=== PATIENT | female | born 1985 | race Caucasian/White ===

== ENCOUNTER 2022-07-09 09:30 | Emergency (ER) | payer BC, SELFPAY ==
[2022-07-09] VITALS (33 sets, daily range): BP systolic 129–166; BP diastolic 89–116; PULSE 54–79; RESP 16; TEMP 36.3; O2SAT 98–100; BMI 25.8
--- NOTE | 2022-07-09 10:10 | ED.GENADULT ---
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 Patient reports she has had 2 day history of left-sided pleuritic chest pain. They did get back from a long trip to [place] about a week ago. She has noticed no swelling or edema in her legs. No fevers chills cough. No COVID symptoms. She has generally been quite healthy. Has had a stressful week where she has had to lay off some employees. She takes Celexa and omeprazole she has had longstanding reflux. She reports this is different than her reflux. She can make it more uncomfortable when she takes a deep breath hurts over her left lateral chest wall area. No leg swelling or edema as mention. No bleeding or clotting problems. Her had a vasectomy. Related Data Home Medications Medication Instructions Recorded Confirmed citalopram 20 mg tablet (Celexa) 20 mg PO DAILY 07/09/22 07/09/22 omeprazole 20 mg-sodium 1 cap PO DAILY 07/09/22 07/09/22 bicarbonate 1.1 gram capsule (Zegerid) Allergies Allergy/AdvReac Type Severity Reaction Status Date / Time Sulfa (Sulfonamide Allergy Severe Verified 07/09/22 12:00 Antibiotics) Review of Systems Status of ROS: Reports: 6 or more systems reviewed and unremarkable except as noted in History and below PFSH PFSH Social History Smoking Status: Never smoker Do you use any of these nicotine containing products: None Second hand tobacco smoke exposure: No How often do you have a drink containing alcohol: 2-3 times a week How many standard drinks containing alcohol do you have on a typical day: 3 or 4 AUDIT-C Alcohol total score: 4 Non-prescribed substance use: denies use service: No Exam Narrative: Exam Narrative: Objective: Vital signs are slightly elevated blood pressure, the patient usually does not have elevated blood pressure. She has had elevated blood pressure in ERs in the past HEENT is unremarkable Neck is supple Chest is clear no rales or wheezing Heart rhythm without murmur Patient can recreate the discomfort by taking a deep breath her left mid axillary line below her left breast. No skin rashes reported Abdomen benign soft Extremities are no edema neurologic nonfocal good peripheral perfusion noted Const: Vital Signs, click to edit/add: Vital Signs - 24 hr 07/09/22 09:37 07/09/22 11:06 07/09/22 09:42 Temperature 97.4 F L Pulse Rate 70 Pulse Rate [Pulse Oximeter] 79 Respiratory Rate 16 Blood Pressure Blood Pressure [Ri ght Upper Arm] 159/105 H Pulse Oximetry 100 100 [facility] 07/09/22 09:43 07/09/22 09:45 07/09/22 10:00 Temperature Pulse Rate 66 67 65 Pulse Rate [Pulse Oximeter] Respiratory Rate Blood Pressure 135/110 H Blood Pressure [Ri ght Upper Arm] Pulse Oximetry 100 100 100 [facility] 07/09/22 10:01 07/09/22 10:15 07/09/22 10:21 Temperature Pulse Rate 67 58 L 58 L Pulse Rate [Pulse Oximeter] Respiratory Rate Blood Pressure 159/102 H 132/96 H Blood Pressure [Ri ght Upper Arm] Pulse Oximetry 100 100 100 [facility] 07/09/22 10:30 07/09/22 10:41 07/09/22 10:41 Temperature Pulse Rate 62 59 L 59 L Pulse Rate [Pulse Oximeter] Respiratory Rate Blood Pressure 129/102 H 129/102 H Blood Pressure [Ri ght Upper Arm] Pulse Oximetry 100 100 100 [facility] 07/09/22 10:41 07/09/22 10:41 07/09/22 10:45 Temperature Pulse Rate 59 L 59 L 60 Pulse Rate [Pulse Oximeter] Respiratory Rate Blood Pressure 129/102 H 129/102 H Blood Pressure [Ri ght Upper Arm] Pulse Oximetry 100 100 98 [facility] 07/09/22 11:00 07/09/22 11:01 07/09/22 11:02 Temperature Pulse Rate 57 L 59 L Pulse Rate [Pulse Oximeter] Respiratory Rate Blood Pressure 143/100 H Blood Pressure [Ri ght Upper Arm] Pulse Oximetry 100 100 [facility] 07/09/22 11:15 04/12/23 11:21 07/09/22 11:30 Temperature Pulse Rate 54 L 59 L 59 L Pulse Rate [Pulse Oximeter] Respiratory Rate Blood Pressure 146/105 H Blood Pressure [Ri ght Upper Arm] Pulse Oximetry 100 100 100 Oxygen Delivery Me thod 07/09/22 11:41 07/09/22 12:02 07/09/22 12:03 Temperature Pulse Rate 61 78 78 Pulse Rate [Pulse Oximeter] Respiratory Rate Blood Pressure 143/103 H 165/116 H Blood Pressure [Ri ght Upper Arm] Pulse Oximetry 100 100 100 Oxygen Delivery Me thod 07/09/22 12:15 07/09/22 12:22 07/09/22 12:23 Temperature Pulse Rate 61 63 61 Pulse Rate [Pulse Oximeter] Respiratory Rate Blood Pressure 166/112 H Blood Pressure [Ri ght Upper Arm] Pulse Oximetry 100 100 100 Oxygen Delivery Me thod 07/09/22 12:30 07/09/22 12:42 07/09/22 12:45 Temperature Pulse Rate 55 L 58 L 56 L Pulse Rate [Pulse Oximeter] Respiratory Rate Blood Pressure 165/89 H Blood Pressure [Ri ght Upper Arm] Pulse Oximetry 100 100 100 Oxygen Delivery Me thod 07/09/22 13:00 07/09/22 13:01 07/09/22 13:02 Temperature Pulse Rate 57 L 57 L 54 L Pulse Rate [Pulse Oximeter] Respiratory Rate Blood Pressure 161/115 H Blood Pressure [Ri ght Upper Arm] Pulse Oximetry 99 100 100 Oxygen Delivery Me thod 07/09/22 13:15 07/09/22 13:22 07/09/22 13:30 Temperature Pulse Rate 58 L 62 60 Pulse Rate [Pulse Oximeter] Respiratory Rate Blood Pressure 164/113 H Blood Pressure [Ri ght Upper Arm] Pulse Oximetry 100 100 100 Oxygen Delivery Me thod Course Vital Signs Vital signs: Initial Vital Signs Temperature 97.4 F L 07/09/22 09:37 Temperature Source Temporal Artery Scan 07/09/22 09:37 Pulse Rate 79 07/09/22 09:37 Pulse Rhythm Regular 07/09/22 09:37 Pulse Strength 3+ Normal 07/09/22 09:37 Respiratory Rate 16 07/09/22 09:37 Blood Pressure 159/105 H 07/09/22 09:37 Blood Pressure Mean 123 07/09/22 09:37 Blood Pressure Position Supine 07/09/22 09:37 Pulse Oximetry 100 07/09/22 09:37 Oxygen Delivery Method Room Air 07/09/22 09:37 Vital Signs Temperature 97.4 F L 07/09/22 09:37 Pulse Rate 79 07/09/22 09:37 Respiratory Rate 16 07/09/22 09:37 Blood Pressure 159/105 H 07/09/22 09:37 Pulse Oximetry 100 07/09/22 09:37 Oxygen Delivery Method Room Air 07/09/22 09:37 Temperature 97.4 F L 07/09/22 09:37 Pulse Rate 60 07/09/22 13:30 Respiratory Rate 16 07/09/22 09:37 Blood Pressure 164/113 H 07/09/22 13:22 Pulse Oximetry 100 07/09/22 13:30 Oxygen Delivery Method Room Air 07/09/22 09:37 Medical Decision Making MDM Narrative Medical decision making narrative: [age] year white female with left-sided pleuritic chest pain, a week after a prolonged car ride. Patient does not appear to be hypoxic at this point. His 100% on room air. She has been under lot of stress this week as well. I suspect this is more a musculoskeletal type issue, but certainly cannot exclude PE or other intrapulmonary pathology given her recent travel. I think a chest CT scan would be appropriate as well as laboratory studies, EKG, troponin, D-dimer, aspirin orally. Minor for comfortable plan. Addendum: EKG by my read shows sinus bradycardia no acute ST T wave changes, CT scan of the chest shows no evidence of PE Her D-dimer is slightly elevated, but her CT is negative as mention which is reassuring. Certainly this could be elevated for a number reasons including inflammation. I think she has got an inflammatory chest wall condition. She will take some Advil or Aleve as described. Light activity recommended also of note is her troponin was negative her CRP was negative. She has been comfortable plan return as needed. Also her blood pressure was a little bit elevated she will check this with her home cough over the next few days and follow up with primary care. Lab Data Labs: Lab Results 07/09/22 Range/Units 10:58 WBC 5.73 (4.50-11.00) K/uL RBC 4.61 (4.00-5.20) m/uL Hgb 11.4 L (12.0-16.0) gm/dL Hct 36.2 (33.0-51.0) % MCV 79 L (80-100) fL MCH 25 L (26-34) pg MCHC 32 (32-36) gm/dL RDW Coeff of Kei 15.7 H (11.5-15.5) % Plt Count 352 (140-440) K/uL Neut % (Auto) 56.4 (42.0-72.0) % Lymph % (Auto) 33.0 (20-44) % Gosper % (Auto) 6.8 (0.0-11.0) % Eos % (Auto) 3.3 (0.0-7.0) % Baso % (Auto) 0.3 (0.0-3.0) % Neut # (Auto) 3.23 (1.7-7.0) K/uL Lymph # (Auto) 1.89 (0.90-2.90) K/uL Gosper # (Auto) 0.40 (0.00-0.90) K/UL Eos # (Auto) 0.19 (0.00-0.50) K/uL Baso # (Auto) 0.02 (0.00-0.30) K/uL D-Dimer Quant (PE/DVT) 1.73 H (0.00-0.50) ug/ml Sodium 137 (135-149) mmol/L Potassium 4.2 (3.6-5.1) mmol/L Chloride 107 (96-114) mmol/L Carbon Dioxide 18 L (20-32) mmol/L BUN 9 (5-24) mg/dL Creatinine 0.8 (0.5-1.5) mg/dL Estimated Creat Clear 96.18 Estimated GFR 97 ml/min Glucose 86 (60-115) mg/dL Calcium 9.0 (8.4-10.6) mg/dL Total Bilirubin 1.6 H (0.1-1.5) mg/dL Direct Bilirubin 0.3 (0.0-0.5) mg/dL AST 31 (12-35) U/L ALT 21 (4-35) U/L Alkaline Phosphatase 67 (40-150) U/L Troponin I < 0.01 L (0.01-0.04) ng/mL C-Reactive Protein < 0.5 L (0.5-1.0) mg/dL NT-Pro-B Natriuret Pep 29 pg/mL Total Protein 7.8 (6.0-8.3) g/dL Albumin 4.6 (3.3-5.0) g/dL HCG, Qual Negative (Negative) Discharge Plan Discharge Clinical Impression: Chest pain, pleuritic Patient Disposition: Home w/ Parent or Adult Condition: Improved Additional Instructions: Light activity for few days, recommend Aleve or Advil as prescribed, recheck blood pressure with primary care or with home blood pressure cuff over the next week and then discuss with primary. Return if any problems concerns or difficulty. Prescriptions: No Action omeprazole-sodium bicarbonate [Zegerid] 20-1.1 mg-gram capsule 1 cap PO DAILY citalopram [Celexa] 20 mg tablet 20 mg PO DAILY Stand Alone Forms: [facility] Info Instructions
--- NOTE | 2022-07-09 11:00 | CRLHL7_ITS ---
For Patients: As a result of the Century Cures Act, medical imaging exams and procedure reports are released immediately into your electronic medical record. You may view this report before your referring provider. If you have questions, please contact your health care provider. Indication: Shortness of breath, chest pain Technique: Volumetric multidetector CT images of the chest were obtained after the administration of IV contrast. 95 cc Isovue 370 low osmolar intravenous contrast Comparison: None available. Findings: The thoracic inlet and thyroid gland are unremarkable. The thoracic aorta is nonaneurysmal. There is no central filling defect to suggest pulmonary embolism. There is no mediastinal, hilar or axillary adenopathy. The trachea and bronchi are well aerated without significant bronchiectasis. There is no focal consolidation, effusion or pneumothorax. There is no evidence of pulmonary mass or suspicious pulmonary nodule. The partially visualized upper abdominal viscera are within normal limits. The thoracic vertebral body heights remain intact alignment without significant degenerative change or acute osseous abnormality. Impression: No acute cardiopulmonary abnormality. No evidence of pulmonary embolus. Please note that all CT scans at this facility use dose modulation, iterative reconstruction, and/or weight-based dosing when appropriate to reduce radiation dose to as low as reasonably achievable. Dictated by Lopez Morocho MD @ 07/09/2022 1:20:21 PM (Electronically Signed)
[2022-07-09] MEDS: ASPIRIN 81 MG TAB.CHEW 324 MG PO (11:14)
[2022-07-09] MEDS: KETOROLAC 30 MG/ML inj IVP (11:14)
[2022-07-09 11:16] LABS: Basophils Absolute Auto 0.02 K/uL (0.00-0.30); Basophils Percent Auto 0.3 % (0.0-3.0); Eosinophils Absolute Auto 0.19 K/uL (0.00-0.50); Eosinophils Percent Auto 3.3 % (0.0-7.0); Hematocrit 36.2 % (33.0-51.0); Hemoglobin* 11.4 gm/dL (12.0-16.0); Immature Granulocytes Abs Auto 0.01 K/uL (0.00-0.30); Immature Granulocytes Pct Auto 0.2 %; Lymphocytes Absolute Auto 1.89 K/uL (0.90-2.90); Mean Corpuscular HGB Conc 32 gm/dL (32-36); Mean Corpuscular Hemoglobin 25 pg (26-34); Mean Corpuscular Volume 79 fL (80-100); Monocytes Percent Auto 6.8 % (0.0-11.0); Neutrophils Absolute Auto 3.23 K/uL (1.7-7.0); Neutrophils Percent Auto 56.4 % (42.0-72.0); Platelet Count* 352 K/uL (140-440); RDW Coefficient of Variation % 15.7 % (11.5-15.5); Red Blood Count 4.61 m/uL (4.00-5.20); White Blood Count* 5.73 K/uL (4.50-11.00)
[2022-07-09 11:17] LABS: Slide Review Reflex No
[2022-07-09] MEDS: 0.9 % SODIUM CHLORIDE 1000 ml 1,000 ML 6000 ML IV (11:22)
[2022-07-09 11:27] LABS: Albumin* 4.6 g/dL (3.3-5.0); Chloride* 107 mmol/L (96-114)
[2022-07-09 11:28] LABS: Potassium* 4.2 mmol/L (3.6-5.1); Sodium* 137 mmol/L (135-149)
[2022-07-09 11:30] LABS: Creatinine* 0.8 mg/dL (0.5-1.5); Est. Creatinine Clearance* 96.18; Estimated Glomerular Filt Rate 97 ml/min
[2022-07-09 11:31] LABS: Alanine Aminotransferase* 21 U/L (4-35); Alkaline Phosphatase* 67 U/L (40-150); Aspartate Amino Transferase* 31 U/L (12-35); Bilirubin Direct* 0.3 mg/dL (0.0-0.5); Bilirubin Total* 1.6 mg/dL (0.1-1.5); Blood Urea Nitrogen* 9 mg/dL (5-24); Carbon Dioxide* 18 mmol/L (20-32); Glucose* 86 mg/dL (60-115); Total Protein* 7.8 g/dL (6.0-8.3)
[2022-07-09 11:33] LABS: D Dimer Quantitative* 1.73 ug/ml (0.00-0.50); HCG Qualitative Serum* Negative (Negative)
[2022-07-09 11:54] LABS: C Reactive Protein* < 0.5 mg/dL (0.5-1.0); NT Pro B Type NatriureticPept* 29 pg/mL; Troponin I* < 0.01 ng/mL (0.01-0.04)
== END 2022-07-09 13:52 | disposition home or self-care (01) ==
PROVIDERS: Emergency Provider Family Medicine
DX: R07.9 Chest pain, unspecified (principal); R09.1 Pleurisy
CPT/HCPCS: 36415; 71260; 80048; 80076; 83880; 84484; 84703; 85025; 85379; 86140; 93005; 94761; 96361; 96374; 99284; 99285; A9270; J1885; J7030; Q9967